=== PATIENT | male | born 1990 | race Hispanic/Latino ===

== ENCOUNTER 2022-02-13 15:09 | Emergency (ER) | payer OTHER ==
[~2022-02-13] VITALS: Ht 170.2 cm; Wt 87.1 kg
[2022-02-13] MEDS ORDERED: CYCLOBENZAPRINE HCL 10 MG TABLET PO ONE (18:30)
[2022-02-13] MEDS ORDERED: KETOROLAC 60 MG VIAL (30MG/ML) IM ONE ×2 (18:30→18:47)
[2022-02-13] MEDS ORDERED: CYCLOBENZAPRINE HCL 10 MG TABLET ONE (18:47)
[2022-02-13 18:53] LABS: BASOPHILS % (AUTO) 1.1 % (0.0-5.0); EOSINOPHILS % (AUTO) 5.3 % (0.0-8.0); HEMATOCRIT 49.5 % (42-54); LYMPHOCYTES % (AUTO) 35.3 % (21.0-51.0); MEAN CORPUSCULAR HEMOGLOBIN 27.6 pg (27.0-33.0); MEAN CORPUSCULAR HGB CONC 33.5 g/dL (32.0-36.0); MEAN CORPUSCULAR VOLUME 82.4 fL (79-99); MONOCYTES % (AUTO) 5.4 % (3.0-13.0); NEUTROPHILS % (AUTO) 52.7 % (40.0-77.0); PLATELET COUNT (AUTO) 327 K/uL (130-400); RED BLOOD CELL COUNT(AUTO) 6.01 MIL/uL (4.50-6.20); RED CELL DISTRIBUTION WIDTH 11.9 % (11.0-15.5); WHITE BLOOD COUNT (AUTO) 9.6 K/uL (4.8-10.8)
[2022-02-13 19:20] LABS: CREATININE 0.8 mg/dL (0.5-1.5)
[2022-02-13 19:32] LABS: ALBUMIN 4.2 g/dL (3.5-5.0); BILIRUBIN,TOTAL 1.3 mg/dL (0.2-1.0); TOTAL PROTEIN, SERUM 8.2 g/dL (6.0-8.3)
[2022-02-13 19:42] VITALS: BP 121/76
== END 2022-02-13 19:50 | disposition home or self-care (01) ==
LOC: EDH 15:09
DX: B34.9 Viral infection, unspecified (principal); R07.89 Other chest pain; R79.89 Other specified abnormal findings of blood chemistry; Z20.822 Contact with and (suspected) exposure to COVID-19; Z90.49 Acquired absence of other specified parts of digestive tract; Z79.1 Long term (current) use of non-steroidal anti-inflammatories (NSAID)
CPT/HCPCS: 36415; 80053; 84484; 85025; 87635; 87804 ×2; 96372; 99283; C9803; J1885

== ENCOUNTER 2025-01-26 06:23 | Emergency (ER) | payer OTHER ==
[~2025-01-26] VITALS: Ht 170.2 cm; Wt 72.6 kg
[~2025-01-26 06:23] MED LIST: LORA-868 PO; ONDA-243 PO
[2025-01-26 07:06] LABS: BASOPHILS # (AUTO) 0.06 K/uL (0.00-0.20); EOSINOPHILS # (AUTO) 0.24 K/uL (0.00-0.70); EOSINOPHILS % (AUTO) 4.1 % (0.0-8.0); HEMATOCRIT 47.3 % (42-54); IMMATURE GRANULOCYTE ABSOLUTE 0.01 K/uL (0-1); LYMPHOCYTES # (AUTO) 2.6 K/uL (1.0-4.8); LYMPHOCYTES % (AUTO) 43.8 % (21.0-51.0); MEAN CORPUSCULAR HEMOGLOBIN 28.9 pg (27.0-33.0); MEAN CORPUSCULAR HGB CONC 35.9 g/dL (32.0-36.0); MEAN CORPUSCULAR VOLUME 80.4 fL (79-99); MONOCYTES # (AUTO) 0.4 K/uL (0.1-1.0); MONOCYTES % (AUTO) 6.3 % (3.0-13.0); NEUTROPHILS # (AUTO) 2.6 K/uL (1.8-7.7); NEUTROPHILS % (AUTO) 44.6 % (40.0-77.0); PLATELET COUNT (AUTO) 278 K/uL (130-400); RED BLOOD CELL COUNT(AUTO) 5.88 MIL/uL (4.50-6.20); WHITE BLOOD COUNT (AUTO) 5.9 K/uL (4.8-10.8)
[2025-01-26 07:19] LABS: INR 1.03 (0.85-1.15); PROTHROMBIN TIME 10.9 SEC (9.6-11.6)
[2025-01-26 07:20] LABS: PARTIAL THROMBOPLASTIN TIME 28.1 SEC (26.3-35.5)
[2025-01-26 07:22] LABS: CREATININE 0.6 mg/dL (0.5-1.3); POTASSIUM 3.8 mmol/L (3.5-5.1)
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
[2025-01-26 07:36] LABS: B-TYPE NATRIURETIC PEPTIDE < 5 pg/mL (0-100)
--- NOTE | 2025-01-26 08:03 | HMCIMG ---
PORTABLE CHEST RADIOGRAPH INDICATION: CHEST PAIN COMPARISON: None FINDINGS: Shallow inspiration. Heart size is normal. The pulmonary vascularity and daniella appear normal. No abnormal pulmonary parenchymal opacity or consolidation identified. No significant pleural effusion noted. No pneumothorax detected. IMPRESSION: Shallow inspiration without radiographic evidence for any acute cardiopulmonary process.
[2025-01-26 08:07] LABS: AMPHET/METH SCREEN,URINE NEGATIVE (NEGATIVE); BARBITURATE SCREEN, URINE NEGATIVE (NEGATIVE); BENZODIAZEPINES SCREEN,URINE NEGATIVE (NEGATIVE); CANNABINOID SCREEN,URINE NEGATIVE (NEGATIVE); COCAINE SCREEN,URINE NEGATIVE (NEGATIVE); OPIATE SCREEN,URINE NEGATIVE (NEGATIVE); PHENCYCLIDINE SCREEN,URINE NEGATIVE (NEGATIVE)
[2025-01-26 08:10] LABS: APPEARANCE,URINE CLEAR (CLEAR); BILIRUBIN,URINE NEGATIVE (NEGATIVE); COLOR,URINE LIGHT-YELLOW (YELLOW); GLUCOSE, URINE (UA) >=1000 mg/dL (NEGATIVE); KETONES,URINE 20 mg/dL (NEGATIVE); LEUKOCYTE ESTERASE ,URINE NEGATIVE Leu/uL (NEGATIVE); NITRATE,URINE NEGATIVE (NEGATIVE); OCCULT BLOOD,URINE NEGATIVE (NEGATIVE); PROTEIN,URINE NEGATIVE (NEGATIVE); UROBILINOGEN,URINE 0.2 mg/dL (0.2-1.0)
[2025-01-26 08:11] LABS: ADD UA MICROSCOPIC YES
[2025-01-26 08:13] LABS: MUCUS,URINE RARE LPF (None Seen); RBC,URINE 0-1 /HPF (0-1); WBC,URINE 0-1 /HPF (0-1)
[2025-01-26] MEDS ORDERED: METF-446 PO (08:51)
[2025-01-26 09:36] VITALS: BP 116/79; PULSE 75; RESP 18; TEMP 98.1; O2SAT 98
--- NOTE | 2025-01-26 09:53 | NUR ---
PT RECEIVED HIS DISCHAREG PAPERWORK AND PRESCRIPRION. EDUCATION GIVEN ON BLOOD GLOCOSE MONITORING. VERBALIZED UNDERSTANDING. AMBULATED TO DISCHARGE WITH A STEADY GAIT.
--- NOTE | 2025-01-26 11:23 | EKG ---
[facility] Test Date: 2025-01-26 Test Time: 07:21:23 Pat Name: SANCHO LUNA Department: [facility] Room: Gender: M Latcher: [id number] : 1990 Requested By: BRIGETTE RAMEY Order Number: [id number] Reading MD: Jennifer Christina Measurements Intervals [place] Rate: 71 P: 22 WI: 164 QRS: 30 QRSD: 90 T: 5 QT: 357 QTc: 389 Interpretive Statements Sinus rhythm ST elev, probable normal early repol pattern No previous ECG available for comparison Electronically Signed On 01-26-2025 14:38:48 CDT by Jennifer Christina Please click the below link to view image of tracing.
== END 2025-01-26 09:54 | disposition home or self-care (01) ==
LOC: EDH 06:23
DX: R07.89 Other chest pain (principal); E11.9 Type 2 diabetes mellitus without complications; Z79.84 Long term (current) use of oral hypoglycemic drugs; Z79.899 Other long term (current) drug therapy; Z90.49 Acquired absence of other specified parts of digestive tract; Z98.890 Other specified postprocedural states
CPT/HCPCS: 36415; 71045; 80048; 80305; 81001; 82550; 83036; 83880; 84484; 85025; 85378; 85610; 85651; 85730; 86140; 93005; 99285